=== PATIENT | female | born 1955 | race Caucasian/White ===

== ENCOUNTER 2019-10-17 06:50 | Day surgery (SDC) | payer OTHER ==
[~2019-10-17 06:50] MED LIST: ASPIR 8181 MG PO; GLIMEPIRIDE2 MG PO; LOSARTAN POTASS50 MG PO; METFORMIN HCL500 M2 PO; PLAVIX75 MG PO; TOPROL XL25 M1 PO
[2019-10-17] MEDS ORDERED: PERCOCET 5-3251 EACH PO (13:29)
== END 2019-10-17 16:20 | disposition home or self-care (01) ==
LOC: CIR.AMB 06:50 → ADM 08:45 → CIR.AMB 16:20
DX: D35.1 Benign neoplasm of parathyroid gland (principal)